=== PATIENT | male | born 1985 | race Caucasian/White ===

== ENCOUNTER 2017-05-20 07:00 | Emergency (ER) | payer SELFPAY ==
[~2017-05-20] VITALS: Ht 167.6 cm; Wt 83.9 kg
[~2017-05-20 07:00] MED LIST: AMOX500C PO; ONDA4TAB10 SL
[2017-05-20] MEDS ORDERED: DICYCLOMINE HCL 10 MG CAPSULE PO ONE (07:45)
[2017-05-20] MEDS ORDERED: ONDANSETRON ODT 4 MG TAB.RAPDIS. PO ONE (07:45)
--- NOTE | 2017-05-20 07:57 | PHYS DOC ---
Past Medical History Past Medical History: Asthma Past Surgical History: Other Additional Past Surgical Histo: tubes in ears Alcohol Use: Occasionally Drug Use: None Adult General Chief Complaint Chief Complaint: NAUSEA/VOMITING/DIARRHA HPI HPI Patient is a 31 year old male presents to the emergency department with a history of nausea, vomiting and diarrhea since last night. Patient states he has vomited 12 times since last night, and has had 3 diarrhea stools. Denies blood in emesis or stool. He states he has lower abdominal pain. Denies fever, chills. Review of Systems Review of Systems Constitutional: Denies fever or chills [] Eyes: Denies change in visual acuity, redness, or eye pain [] HENT: Denies nasal congestion or sore throat [] Respiratory: Denies cough or shortness of breath [] Cardiovascular: No additional information not addressed in HPI [] GI: lower abdominal pain, nausea, vomiting, and diarrhea [] : Denies dysuria or hematuria [] Musculoskeletal: Denies back pain or joint pain [] Integument: Denies rash or skin lesions [] Neurologic: Denies headache, focal weakness or sensory changes [] Endocrine: Denies polyuria or polydipsia [] Current Medications Current Medications Current Medications Medications (Trade) Dose Ordered Sig/Joaquim Start Time Stop Time Status Last Admin Dose Admin Dicyclomine HCl (Bentyl) 10 mg 1X ONCE 05/20/17 07:45 05/20/17 07:46 DC 05/20/17 07:57 10 MG Ondansetron HCl (Zofran Odt) 4 mg 1X ONCE 05/20/17 07:45 05/20/17 07:46 DC 05/20/17 07:57 4 MG Allergies Allergies Allergies Coded Allergies Type Severity Reaction Last Updated Verified No Known Drug Allergies 01/02/14 No Physical Exam Physical Exam Constitutional: Well developed, well nourished, no acute distress, non-toxic appearance. [] HENT: Normocephalic, atraumatic, bilateral external ears normal, oropharynx moist, no oral exudates, nose normal. [] Eyes: PERRLA, EOMI, conjunctiva normal, no discharge. [] Neck: Normal range of motion, no tenderness, supple, no stridor. [] Cardiovascular:Heart rate regular rhythm, no murmur [] Lungs & Thorax: Bilateral breath sounds clear to auscultation [] Abdomen: Bowel sounds normal, soft, no tenderness, no masses, no pulsatile masses. [] Skin: Warm, dry, no erythema, no rash. [] Back: No tenderness Extremities: No tenderness, no cyanosis, no clubbing, ROM intact, no edema. [] Neurologic: Alert and oriented X 3, normal motor function, normal sensory function, no focal deficits noted. [] Psychologic: Affect normal, judgement normal, mood normal. [] Current Patient Data Vital Signs Vital Signs Date Time Temp Pulse Resp B/P (MAP) Pulse Ox O2 Delivery O2 Flow Rate FiO2 05/20/17 07:17 98.2 62 18 116/59 (78) 96 Room Air 98.2 Lab Values Laboratory Tests Test 05/20/17 07:55 White Blood Count 7.3 x10^3/uL (4.0-11.0) Red Blood Count 5.18 x10^6/uL (4.30-5.70) Hemoglobin 15.5 g/dL (13.0-17.5) Hematocrit 45.8 % (39.0-53.0) Mean Corpuscular Volume 89 fL (79-100) Mean Corpuscular Hemoglobin 30 pg (25-35) Mean Corpuscular Hemoglobin Concent 34 g/dL (31-37) Red Cell Distribution Width 12.4 % (11.5-14.5) Platelet Count 229 x10^3/uL (140-400) Neutrophils (%) (Auto) 45 % (31-73) Lymphocytes (%) (Auto) 42 % (24-48) Monocytes (%) (Auto) 8 % (0-9) Eosinophils (%) (Auto) 4 % (0-3) H Basophils (%) (Auto) 1 % (0-3) Neutrophils # (Auto) 3.3 x10^3uL (1.8-7.7) Lymphocytes # (Auto) 3.0 x10^3/uL (1.0-4.8) Monocytes # (Auto) 0.6 x10^3/uL (0.0-1.1) Eosinophils # (Auto) 0.3 x10^3/uL (0.0-0.7) Basophils # (Auto) 0.1 x10^3/uL (0.0-0.2) Sodium Level 137 mmol/L (136-145) Potassium Level 3.7 mmol/L (3.5-5.1) Chloride Level 103 mmol/L (98-107) Carbon Dioxide Level 23 mmol/L (21-32) Anion Gap 11 (6-14) Blood Urea Nitrogen 18 mg/dL (8-26) Creatinine 0.7 mg/dL (0.7-1.3) Estimated GFR (Cockcroft-Gault) 133.3 BUN/Creatinine Ratio 26 (6-20) H Glucose Level 118 mg/dL (70-99) H Calcium Level 8.4 mg/dL (8.5-10.1) L Total Bilirubin 0.2 mg/dL (0.2-1.0) Aspartate Amino Transferase (AST) 13 U/L (15-37) L Alanine Aminotransferase (ALT) 61 U/L (16-63) Alkaline Phosphatase 60 U/L (46-116) Total Protein 7.1 g/dL (6.4-8.2) Albumin 3.6 g/dL (3.4-5.0) Albumin/Globulin Ratio 1.0 (1.0-1.7) Laboratory Tests 05/20/17 07:55 Laboratory Tests 05/20/17 07:55 EKG EKG [] Radiology/Procedures Radiology/Procedures [][facility] [address] [place], [place] [id number] IMAGING REPORT Signed PATIENT: DOROTHY AMAYA ACCOUNT: [id number] : 1985 LOCATION: ER AGE: 31 SEX: M EXAM STATUS: REG ER ORD. PHYSICIAN: SHAWN CABALLERO APRN REASON: LOWER ABDOMINAL PAIN PROCEDURE: ACUTE ABDOMEN SERIES Acute abdomen series with chest, 3 views, 05/20/2017: History: Left-sided abdominal pain, nausea and vomiting Gas is present in large and small bowel without bowel distention. There are scattered air-fluid levels. No free air seen in the abdomen. There is no evidence of organomegaly. Lower pelvic calcifications are probably phleboliths. The heart size and pulmonary vascularity are normal. The lungs are clear. There is no evidence of pleural fluid. IMPRESSION: 1. Scattered air-fluid levels in nondilated bowel loops suggest a mild ileus or may be secondary to fluid in the colon from diarrhea. 2. No other significant abnormality is detected. DICTATED and SIGNED BY: NESTOR GOLD MD DATE: 05/20/17829 CC: SHAWN CABALLERO APRN; NO PCP; NON,STAFF ~ Course & Med Decision Making Course & Med Decision Making Pertinent Labs and Imaging studies reviewed. (See chart for details) Patient tolerated PO challenge without difficulty. CBC and CMP negative, Acute abd series identified possible ileus, possible fluid in the colon. Patient will be sent home with recommendations for clear liquid diet, will be prescriber zofran and bentyl. Patient was provided with discharge instructions, treatment regimen and followup recommendations. Signs and symptoms to return to the emergency department has been provided. All questions and concerns were answered at patients bedside. [] Dragon Disclaimer Dragon Disclaimer This electronic medical record was generated, in whole or in part, using a voice recognition dictation system. Departure Departure Impression: Primary Impression: Vomiting and diarrhea Additional Impression: Lower abdominal pain Disposition: 01 HOME, SELF-CARE Condition: STABLE Referrals: NO PCP (PCP) Patient Instructions: Diarrhea, [id number], Diet for Diarrhea, Adult, Nausea and Vomiting, [id number] Additional Instructions: Activity as tolerated Medication as prescribed Imodium may be taken if your diarrhea last longer than 4 days Clear liquid diet for the next 24 hours Followup with primary care provider in 3-5 days Return to emergency department as needed for signs and symptoms that becomes worse. Scripts Ondansetron (ZOFRAN ODT) 4 Mg Tab.rapdis 1 TAB SL Q8HRS, #10 TAB Prov: SHAWN CABALLERO APRN 05/20/17 Dicyclomine Hcl (BENTYL) 10 Mg Capsule 1 CAP PO TID, #90 CAP 1 Refill Prov: SHAWN CABALLERO APRN 05/20/17 Problem Qualifiers SHAWN CABALLERO APRN May 20, 2017 07:57
[2017-05-20 08:18] LABS: BASO # 0.1 x10^3/uL (0.0-0.2); BASO % 1 % (0-3); EOS % 4 % (0-3); HEMATOCRIT 45.8 % (39.0-53.0); HEMOGLOBIN 15.5 g/dL (13.0-17.5); LYMPH % 42 % (24-48); MEAN CORPUSCULAR HEMOGLOBIN 30 pg (25-35); MEAN CORPUSCULAR HGB CONC 34 g/dL (31-37); MEAN CORPUSCULAR VOLUME 89 fL (79-100); MONO % 8 % (0-9); NEUT % 45 % (31-73); PLATELET COUNT 229 x10^3/uL (140-400); RED BLOOD COUNT 5.18 x10^6/uL (4.30-5.70); RED CELL DISTRIBUTION WIDTH 12.4 % (11.5-14.5); WHITE BLOOD COUNT 7.3 x10^3/uL (4.0-11.0)
[2017-05-20 08:21] LABS: CALCIUM 8.4 mg/dL (8.5-10.1); CREATININE 0.7 mg/dL (0.7-1.3); GFR 133.3; POTASSIUM 3.7 mmol/L (3.5-5.1)
[2017-05-20 08:27] LABS: ALBUMIN 3.6 g/dL (3.4-5.0); TOTAL BILIRUBIN 0.2 mg/dL (0.2-1.0); TOTAL PROTEIN 7.1 g/dL (6.4-8.2)
--- NOTE | 2017-05-20 08:35 | RAD ---
Acute abdomen series with chest, 3 views, 05/20/2017: History: Left-sided abdominal pain, nausea and vomiting Gas is present in large and small bowel without bowel distention. There are scattered air-fluid levels. No free air seen in the abdomen. There is no evidence of organomegaly. Lower pelvic calcifications are probably phleboliths. The heart size and pulmonary vascularity are normal. The lungs are clear. There is no evidence of pleural fluid. IMPRESSION: 1. Scattered air-fluid levels in nondilated bowel loops suggest a mild ileus or may be secondary to fluid in the colon from diarrhea. 2. No other significant abnormality is detected.
[2017-05-20] MEDS ORDERED: ONDA4TAB10 SL (08:59)
[2017-05-20] MEDS ORDERED: DICY10CA53 PO (08:59)
[2017-05-20 09:08] VITALS: BP 112/61
== END 2017-05-20 09:38 | disposition home or self-care (01) ==
LOC: ER 07:00
DX: R11.2 Nausea with vomiting, unspecified (principal); R19.7 Diarrhea, unspecified; R10.30 Lower abdominal pain, unspecified; J45.909 Unspecified asthma, uncomplicated
CPT/HCPCS: 36415; 74022; 80053; 85025; 99285; Q0162

== ENCOUNTER 2017-11-02 19:12 | Emergency (ER) | payer SELFPAY | END 2017-11-02 19:43 | disposition home or self-care (01) | LOC: ER 19:12 | DX: K02.9 Dental caries, unspecified (principal); J45.909 Unspecified asthma, uncomplicated | CPT/HCPCS: 99283 ==

== ENCOUNTER 2017-12-01 18:42 | Emergency (ER) | payer SELFPAY ==
[2017-12-01] MEDS: IBUPROFEN 800 MG TABLET. PO (18:55)
== END 2017-12-01 19:13 | disposition home or self-care (01) ==
LOC: ER 18:42
DX: G89.29 Other chronic pain (principal); K02.9 Dental caries, unspecified
CPT/HCPCS: 99283

== ENCOUNTER 2018-07-06 11:07 | Emergency (ER) | payer SELFPAY ==
[~2018-07-06] VITALS: Ht 167.6 cm; Wt 83.9 kg
[~2018-07-06 11:07] MED LIST changes: +CLIN300C8 PO; +DICY10CA53 PO; +OXYC-323 PO
[2018-07-06] MEDS: BENZONATATE 100 MG CAPSULE. PO ONE (12:02)
[2018-07-06] MEDS: predniSONE 20 MG TABLET PO ONE (12:02)
[2018-07-06] MEDS: NAPROXEN 500 MG TABLET PO STA (12:03)
[2018-07-06] MEDS: IPRATRPIUM/ALBUTEROL 0.5/2.5MG 3 ML NEBU. NEB ONE (12:10)
--- NOTE | 2018-07-06 12:24 | RAD ---
Chest, 2 views, 07/06/2018: HISTORY: Cough, chest pain The heart size and pulmonary vascularity are within normal limits. No pulmonary infiltrate is seen. There is no evidence of pleural fluid. IMPRESSION: No acute cardiopulmonary abnormality is detected. Electronically signed by: Zaki Agrawal MD (07/06/2018 12:21 PM) [facility]
--- NOTE | 2018-07-06 13:14 | PHYS DOC ---
Past Medical History Past Medical History: No Pertinent History Past Surgical History: No Surgical History Additional Past Surgical Histo: tubes in ears Alcohol Use: None Drug Use: None Adult General Chief Complaint Chief Complaint: CHEST WALL PAIN HPI HPI Patient is a 32 year old male who presents with mild to moderate left sided rib pain worse when he coughs or takes a deep breath that has been going on for 4-5 days. Patient states he has history of smoking and has been coughing more lately. Patient denies any fever. Denies any shortness of breath. Review of Systems Review of Systems Constitutional: Denies fever or chills [] Eyes: Denies change in visual acuity, redness, or eye pain [] HENT: Denies nasal congestion or sore throat [] Respiratory: Reports cough and left-sided rib pain, denies shortness of breath [ ] Cardiovascular: No additional information not addressed in HPI [] GI: Denies abdominal pain, nausea, vomiting, bloody stools or diarrhea [] : Denies dysuria or hematuria [] Musculoskeletal: Denies back pain or joint pain [] Integument: Denies rash or skin lesions [] Neurologic: Denies headache, focal weakness or sensory changes [] All other systems were reviewed and found to be within normal limits, except as documented in this note. Current Medications Current Medications Current Medications Medications (Trade) Dose Ordered Sig/Joaquim Start Time Stop Time Status Last Admin Dose Admin Albuterol/ Ipratropium (Duoneb) 3 ml 1X ONCE 07/06/18 11:30 07/06/18 11:33 DC 07/06/18 12:10 3 ML Benzonatate (Tessalon Perle) 100 mg 1X ONCE 07/06/18 11:30 07/06/18 11:33 DC 07/06/18 12:02 100 MG Naproxen (Naprosyn) 500 mg 1X STAT 07/06/18 11:28 07/06/18 11:33 DC 07/06/18 12:03 500 MG Prednisone (Prednisone) 60 mg 1X ONCE 07/06/18 11:30 07/06/18 11:33 DC 07/06/18 12:02 60 MG Allergies Allergies Allergies Coded Allergies Type Severity Reaction Last Updated Verified No Known Drug Allergies 07/06/18 No Physical Exam Physical Exam Constitutional: Well developed, well nourished, no acute distress, non-toxic appearance. [] HENT: Normocephalic, atraumatic, bilateral external ears normal, oropharynx moist, no oral exudates, nose normal. [] Eyes: PERRLA, EOMI, conjunctiva normal, no discharge. [] Neck: Normal range of motion, no tenderness, supple, no stridor. [] Cardiovascular:Heart rate regular rhythm, no murmur [] Lungs & Thorax: Bilateral breath sounds clear to auscultation, reproducible pain to the left ribs on deep breath. Abdomen: Bowel sounds normal, soft, no tenderness, no masses, no pulsatile masses. [] Skin: Warm, dry, no erythema, no rash. [] Back: No tenderness, no CVA tenderness. [] Extremities: No tenderness, no cyanosis, no clubbing, ROM intact, no edema. [] Neurologic: Alert and oriented X 3, normal motor function, normal sensory function, no focal deficits noted. [] Psychologic: Affect normal, judgement normal, mood normal. [] Current Patient Data Vital Signs Vital Signs Date Time Temp Pulse Resp B/P (MAP) Pulse Ox O2 Delivery O2 Flow Rate FiO2 07/06/18 12:10 97 Room Air 07/06/18 11:13 97.6 83 18 127/83 (98) 97.6 EKG EKG [] Radiology/Procedures Radiology/Procedures []PROCEDURE: CHEST PA & LATERAL Chest, 2 views, 07/06/2018: HISTORY: Cough, chest pain The heart size and pulmonary vascularity are within normal limits. No pulmonary infiltrate is seen. There is no evidence of pleural fluid. IMPRESSION: No acute cardiopulmonary abnormality is detected. Electronically signed by: Nestor Agrawal MD (07/06/2018 12:21 PM) [facility] DICTATED and SIGNED BY: NESTOR AGRAWAL MD DATE: 07/06/18 1220 Course & Med Decision Making Course & Med Decision Making Pertinent Labs and Imaging studies reviewed. (See chart for details) This is a 32-year-old male patient with history of smoking presenting to the ED today with pleuritic type of pain on the left ribs also showing signs of bronchitis. Chest x-ray interpreted by radiologist as negative for any acute findings. Was given a DuoNeb treatment prednisone and naproxen with very good relief of his symptoms. Will be discharged with the breathing treatments, prednisone Tessalon Perles and naproxen. Encouraged to consider smoking cessation. Follow-up with PCP in 1-2 weeks Loyd Disclaimer Loyd Disclaimer This electronic medical record was generated, in whole or in part, using a voice recognition dictation system. Departure Departure Impression: Primary Impression: Pleurisy Additional Impressions: Acute bronchitis Smoking addiction Disposition: HOME, SELF-CARE Condition: STABLE Referrals: NO PCP (PCP) Follow-up in 1-2 weeks with your own doctor Patient Instructions: Acute Bronchitis, Pleurisy, [id number], Smoking Cessation Additional Instructions: You were evaluated in the emergency room and noted to pleurisy and acute bronchitis. Consider smoking cessation. Follow-up with your doctor in 1-2 weeks. Use the prescribed medications as ordered. Scripts Albuterol Sulfate (VENTOLIN HFA INHALER) 18 Gm Hfa.aer.ad 2 PUFF INH Q4HRS for FOR ASTHMA, #1 INHALER 0 Refills Prov: ROYAL ALVAREZ APRN 07/06/18 Benzonatate (TESSALON PERLE) 100 Mg Capsule 1 CAP PO TID, #30 CAP Prov: ROYAL ALVAREZ APRN 07/06/18 Prednisone (PREDNISONE) 50 Mg Tablet 1 TAB PO DAILY, #4 TAB Prov: ROYAL ALVAREZ APRN 07/06/18 Naproxen (NAPROXEN) 500 Mg Tablet 1 TAB PO BID, #30 TAB 0 Refills Prov: ROYAL ALVAREZ APRN 07/06/18 Problem Qualifiers Additional Impressions: Acute bronchitis Bronchitis organism: unspecified organism Qualified Codes: J20.9 - Acute bronchitis, unspecified ROYAL ALVAREZ APRN Jul 06, 2018 13:14
[2018-07-06] MEDS ORDERED: PRED50TA PO (13:21)
[2018-07-06] MEDS ORDERED: NAPR-514 PO (13:21)
[2018-07-06] MEDS ORDERED: BENZ100C PO (13:21)
[2018-07-06] MEDS ORDERED: VENTOLIN HFA18 GM INH (13:21)
[2018-07-06 14:00] VITALS: BP 129/90
== END 2018-07-06 14:00 | disposition home or self-care (01) ==
LOC: ER 11:07
DX: J20.9 Acute bronchitis, unspecified (principal); R09.1 Pleurisy; F17.200 Nicotine dependence, unspecified, uncomplicated; Z96.22 Myringotomy tube(s) status
CPT/HCPCS: 71046; 94640; 99284; J7512; J7620

== ENCOUNTER 2019-06-14 21:08 | Emergency (ER) | payer SELFPAY ==
[~2019-06-14] VITALS: Ht 167.6 cm; Wt 95.3 kg
[~2019-06-14 21:08] MED LIST changes: +BENZ100C PO; +NAPR-514 PO; -OXYC-323 PO; +OXYC1TAB15 PO; +PRED50TA PO; +VENTOLIN HFA18 GM INH
[2019-06-14 21:36] VITALS: BP 149/77
[2019-06-14] MEDS ORDERED: SULF1TAB24 PO (21:59)
--- NOTE | 2019-06-14 21:59 | PHYS DOC ---
Past Medical History Past Medical History: No Pertinent History (ROYAL ALVAREZ APRN) Past Surgical History: No Surgical History Additional Past Surgical Histo: tubes in ears (ROYAL ALVAREZ APRN) Alcohol Use: None Drug Use: None (ROYAL ALVAREZ APRN) Attending Signature I have participated in the care of this patient and I have reviewed and agree with all pertinent clinical information above including history, exam, and recommendations. (PATRICK FLEMING MD) Adult General Chief Complaint Chief Complaint: ABSCESS HPI HPI Patient is a 33 year old male who presents with an abscess on the right chest wall for one week. Patient states he has used pride and the abscess opened up and drained. Denies any fever. (ROYAL ALVAREZ APRN) Review of Systems Review of Systems Constitutional: Denies fever or chills [] Musculoskeletal: Denies back pain or joint pain [] Integument: Reports abscess on the right chest wall Neurologic: Denies headache, focal weakness or sensory changes [] All other systems were reviewed and found to be within normal limits, except as documented in this note. (ROYAL ALVAREZ APRN) Current Medications Current Medications Current Medications Medications (Trade) Dose Ordered Sig/Joaquim Start Time Stop Time Status Last Admin Dose Admin Diphtheria/ Tetanus/Acell Pertussis (Boostrix) 0.5 ml ONCE ONCE 06/14/19 22:15 06/14/19 22:13 DC (PATRICK FLEMING MD) Allergies Allergies Allergies Coded Allergies Type Severity Reaction Last Updated Verified No Known Drug Allergies 07/06/18 No (PATRICK FLEMING MD) Physical Exam Physical Exam Constitutional: Well developed, well nourished, no acute distress, non-toxic appearance. [] Skin: Warm, dry, right mid chest, axillary line with an open wound approximately 1 x 1 cm with trace erythema. No fluctuance to this wound. Back: No tenderness, no CVA tenderness. [] Extremities: No tenderness, no cyanosis, no clubbing, ROM intact, no edema. [] Neurologic: Alert and oriented X 3, normal motor function, normal sensory function, no focal deficits noted. [] Psychologic: Affect normal, judgement normal, mood normal. [] (ROYAL ALVAREZ APRN) Current Patient Data Vital Signs Vital Signs Date Time Temp Pulse Resp B/P (MAP) Pulse Ox O2 Delivery O2 Flow Rate FiO2 06/14/19 21:36 98.3 102 18 149/77 (101) 97 Room Air 98.3 (PATRICK FLEMING MD) EKG EKG [] (ROYAL ALVAREZ APRN) Radiology/Procedures Radiology/Procedures [] (ROYAL ALVAREZ APRN) Course & Med Decision Making Course & Med Decision Making Pertinent Labs and Imaging studies reviewed. (See chart for details) This is a 33-year-old male patient who presents to the ED today with an abscess on the right chest wall that has opened up and drained. There is trace cellulitis around the abscess. He'll be discharged on cephalexin and Bactrim. Follow-up with PCP in 1-2 weeks as needed. Tetanus updated. (ROYAL ALVAREZ APRN) Dragon Disclaimer Dragon Disclaimer This electronic medical record was generated, in whole or in part, using a voice recognition dictation system. (ROYAL ALVAREZ APRN) Departure Departure Impression: Primary Impression: Chest wall abscess Disposition: HOME, SELF-CARE Condition: STABLE Referrals: NO PCP (PCP) follow up in one week Patient Instructions: Abscess, Care After Additional Instructions: You have an abscess on the right chest wall region, take the prescribed antibiotics until completed. Follow-up with your doctor in 1-2 weeks. Come back to the ED at any point symptoms worsen. Keep the area clean and dry. Scripts Sulfamethoxazole/Trimethoprim (BACTRIM DS TABLET) 1 Each Tablet 1 TAB PO BID, #20 TAB Prov: ROYAL ALVAREZ APRN 06/14/19 ROYAL ALVAREZ APRN Jun 14, 2019 21:59 PATRICK FLEMING MD Jun 15, 2019 04:04
[2019-06-14] MEDS ORDERED: DIPHTH,PERTUSS(ACELL),TET TOX 0.5 ML DISP.SYRIN. VAX IM ONE (22:15)
== END 2019-06-14 22:10 | disposition home or self-care (01) ==
LOC: ER 21:08
DX: L02.213 Cutaneous abscess of chest wall (principal)
CPT/HCPCS: 99283

== ENCOUNTER 2019-08-10 19:27 | Emergency (ER) | payer SELFPAY ==
[~2019-08-10] VITALS: Ht 177.8 cm; Wt 95.3 kg
[~2019-08-10 19:27] MED LIST changes: +SULF1TAB24 PO
[2019-08-10] MEDS ORDERED: MECLIZINE HCL 12.5 MG TABLET. PO ONE (19:45)
[2019-08-10] MEDS ORDERED: DEXAMETHASONE 4 MG TABLET PO ONE (19:45)
[2019-08-10] MEDS ORDERED: IV NORMAL SALINE 1000ML BAG 1,000 ML IV ONE (19:45)
--- NOTE | 2019-08-10 19:51 | PHYS DOC ---
Past Medical History Past Medical History: No Pertinent History Past Surgical History: No Surgical History Additional Past Surgical Histo: tubes in ears Smoking: Less than 1pk/day (1/2 ppd) Alcohol Use: None Drug Use: None Adult General Chief Complaint Chief Complaint: DIZZY/LIGHT HEADED HPI HPI Patient is a 33 y/o male who presents to the ED with dizziness that started afte r an episode of vomiting today at 1000 while at work. He describes the dizziness as the "room spinning" and states it has been happening fluctuating all day. Pt also endorses right sided chest pain and SOB. Denies any radiation of pain and history of vertigo. Review of Systems Review of Systems Constitutional: Denies fever or chills Eyes: Denies redness or eye pain HENT: Denies nasal congestion or sore throat Respiratory: Reports shortness of breath Cardiovascular: Reports chest pain, denies palpitations GI: Denies abdominal pain, Reports nausea and vomiting : Denies dysuria or hematuria Musculoskeletal: Denies back pain or joint pain Integument: Denies rash or skin lesions Neurologic: Reports dizziness Complete systems were reviewed and found to be within normal limits, except as documented in this note. Current Medications Current Medications Current Medications Medications (Trade) Dose Ordered Sig/Joaquim Start Time Stop Time Status Last Admin Dose Admin Dexamethasone (Decadron) 10 mg 1X ONCE 08/10/19 19:45 08/10/19 19:53 DC 08/10/19 20:21 10 MG Meclizine HCl (Antivert) 25 mg 1X ONCE 08/10/19 19:45 08/10/19 19:53 DC 08/10/19 20:21 25 MG Sodium Chloride 1,000 ml @ 1,000 mls/hr 1X ONCE 08/10/19 19:45 08/10/19 20:44 DC 08/10/19 19:45 1,000 MLS/HR Allergies Allergies Allergies Coded Allergies Type Severity Reaction Last Updated Verified No Known Drug Allergies 07/06/18 No Physical Exam Physical Exam Constitutional: Well developed, well nourished, mild acute distress, non-toxic appearance HENT: Normocephalic, atraumatic, oropharynx moist Cardiovascular: Heart rate normal, regular rhythm Lungs & Thorax: Bilateral breath sounds clear to auscultation, slight expiratory wheeze on right lower lung field Abdomen: Soft, no tenderness Skin: Warm, dry, no erythema, no rash Back: No tenderness, no CVA tenderness Extremities: No tenderness, ROM intact, no edema Neurologic: Alert and oriented X 3, normal motor function, normal sensory function, no focal deficits noted Psychologic: Affect normal, judgement normal, mood normal Current Patient Data Vital Signs Vital Signs Date Time Temp Pulse Resp B/P (MAP) Pulse Ox O2 Delivery O2 Flow Rate FiO2 08/10/19 22:19 81 22 99 08/10/19 19:41 97.7 117/69 (85) Room Air 97.7 Lab Values Laboratory Tests Test 08/10/19 19:43 08/10/19 19:54 08/10/19 21:00 Troponin I Quantitative < 0.017 ng/mL (0.000-0.055) White Blood Count 9.0 x10^3/uL (4.0-11.0) Red Blood Count 5.60 x10^6/uL (4.30-5.70) Hemoglobin 16.7 g/dL (13.0-17.5) Hematocrit 49.6 % (39.0-53.0) Mean Corpuscular Volume 89 fL (79-100) Mean Corpuscular Hemoglobin 30 pg (25-35) Mean Corpuscular Hemoglobin Concent 34 g/dL (31-37) Red Cell Distribution Width 12.9 % (11.5-14.5) Platelet Count 261 x10^3/uL (140-400) Neutrophils (%) (Auto) 61 % (31-73) Lymphocytes (%) (Auto) 29 % (24-48) Monocytes (%) (Auto) 7 % (0-9) Eosinophils (%) (Auto) 3 % (0-3) Basophils (%) (Auto) 1 % (0-3) Neutrophils # (Auto) 5.5 x10^3/uL (1.8-7.7) Lymphocytes # (Auto) 2.6 x10^3/uL (1.0-4.8) Monocytes # (Auto) 0.6 x10^3/uL (0.0-1.1) Eosinophils # (Auto) 0.2 x10^3/uL (0.0-0.7) Basophils # (Auto) 0.1 x10^3/uL (0.0-0.2) Sodium Level 139 mmol/L (136-145) Potassium Level 3.4 mmol/L (3.5-5.1) L Chloride Level 102 mmol/L (98-107) Carbon Dioxide Level 24 mmol/L (21-32) Anion Gap 13 (6-14) Blood Urea Nitrogen 11 mg/dL (8-26) Creatinine 0.8 mg/dL (0.7-1.3) Estimated GFR (Cockcroft-Gault) 112.8 BUN/Creatinine Ratio 14 (6-20) Glucose Level 89 mg/dL (70-99) Calcium Level 9.0 mg/dL (8.5-10.1) Magnesium Level 2.0 mg/dL (1.8-2.4) Total Bilirubin 0.8 mg/dL (0.2-1.0) Aspartate Amino Transferase (AST) 31 U/L (15-37) Alanine Aminotransferase (ALT) 77 U/L (16-63) H Alkaline Phosphatase 63 U/L (46-116) Creatine Kinase 68 U/L (39-308) Creatine Kinase MB (Mass) 0.8 ng/mL (0.0-3.6) Creatine Kinase MB Relative Index % (0-4) Total Protein 7.1 g/dL (6.4-8.2) Albumin 4.0 g/dL (3.4-5.0) Albumin/Globulin Ratio 1.3 (1.0-1.7) Ethyl Alcohol Level < 10 mg/dL (0-10) Urine Collection Type Unknown Urine Color Yoselyn Urine Clarity Cloudy Urine pH 6.0 Urine Specific Reeves >=1.030 Urine Protein Negative mg/dL (NEG-TRACE) Urine Glucose (UA) Negative mg/dL (NEG) Urine Ketones (Stick) >=80 mg/dL (NEG) Urine Blood Negative (NEG) Urine Nitrite Negative (NEG) Urine Bilirubin Moderate (NEG) Urine Urobilinogen Dipstick 1.0 mg/dL (0.2 mg/dL) Urine Leukocyte Esterase Negative (NEG) Urine RBC Occ /HPF (0-2) Urine WBC 5-10 /HPF (0-4) Urine Squamous Epithelial Cells Few /LPF Urine Bacteria Few /HPF (0-FEW) Urine Mucus Marked /LPF Urine Opiates Screen Neg (NEG) Urine Methadone Screen Neg (NEG) Urine Barbiturates Neg (NEG) Urine Phencyclidine Screen Neg (NEG) Urine Amphetamine/Methamphetamine Pos (NEG) Urine Benzodiazepines Screen Neg (NEG) Urine Cocaine Screen Neg (NEG) Urine Cannabinoids Screen Pos (NEG) Urine Ethyl Alcohol Neg (NEG) Laboratory Tests 08/10/19 19:54 Laboratory Tests 08/10/19 19:54 EKG EKG @1959 NSR at 94bpm, NO ST elevation, QRS 80ms, QT/QTc 346/438ms Radiology/Procedures Radiology/Procedures PROCEDURE: CT HEAD WO CONTRAST CT scan of the head without contrast 08/10/2019 Clinical History: Dizziness. Technique: Unenhanced, contiguous, 5 mm axial sections were obtained through the head. One or more of the following individualized dose reduction techniques were utilized for this study: 1. Automated exposure control. 2. Adjustment of the mA and/or kV according to patient size. 3. Use of iterative reconstruction technique. Findings: The ventricles and sulci are within normal limits in size and configuration. No focal area of abnormal attenuation is seen involving the brain parenchyma. No extra-axial fluid collection is seen. No skull fracture is seen. Impression: Negative study. Electronically signed by: Ashok Guadalupe MD (08/10/2019 9:33 PM) [facility] Course & Med Decision Making Course & Med Decision Making Pt is a 33 y/o male who presents with dizziness that started after an episode of vomiting while at work today. He describes the symptoms as the room spinning. Will start pt on fluids, antivert, dexamethasone. EKG... Labs.. CXR.. Dragon Disclaimer Loyd Disclaimer This electronic medical record was generated, in whole or in part, using a voice recognition dictation system. Departure Departure Impression: Primary Impression: Dizziness Additional Impressions: Acute bronchitis Methamphetamine abuse Disposition: 01 HOME, SELF-CARE Condition: STABLE Referrals: NO PCP (PCP) Patient Instructions: Acute Bronchitis, [id number], Dizziness, [id number]-Mhdh, Methamphetamine Abuse, Complications Scripts Meclizine Hcl (MECLIZINE HCL) 25 Mg Tablet 1 TAB PO PRN TID PRN for DIZZINESS, #14 TAB Prov: TIA REDD DO 08/10/19 Prednisone (PREDNISONE) 20 Mg Tablet 2 TAB PO DAILY, #8 TAB Prov: TIA REDD DO 08/10/19 Albuterol Sulfate (PROAIR HFA INHALER) 8.5 Gm Hfa.aer.ad 2 PUFF IH PRN Q4-6HRS PRN for wheezing, #1 INHALER 0 Refills Prov: TIA REDD DO 08/10/19 Problem Qualifiers Additional Impressions: Acute bronchitis Bronchitis organism: unspecified organism Qualified Codes: J20.9 - Acute bronchitis, unspecified TIA REDD DO Aug 10, 2019 19:51
[2019-08-10 20:05] LABS: BASO # 0.1 x10^3/uL (0.0-0.2); BASO % 1 % (0-3); EOS # 0.2 x10^3/uL (0.0-0.7); EOS % 3 % (0-3); HEMATOCRIT 49.6 % (39.0-53.0); HEMOGLOBIN 16.7 g/dL (13.0-17.5); LYMPH # 2.6 x10^3/uL (1.0-4.8); LYMPH % 29 % (24-48); MEAN CORPUSCULAR HEMOGLOBIN 30 pg (25-35); MEAN CORPUSCULAR HGB CONC 34 g/dL (31-37); MEAN CORPUSCULAR VOLUME 89 fL (79-100); MONO # 0.6 x10^3/uL (0.0-1.1); MONO % 7 % (0-9); NEUT # 5.5 x10^3/uL (1.8-7.7); NEUT % 61 % (31-73); PLATELET COUNT 261 x10^3/uL (140-400); RED CELL DISTRIBUTION WIDTH 12.9 % (11.5-14.5)
[2019-08-10 20:19] LABS: CREATININE 0.8 mg/dL (0.7-1.3); GFR 112.8; POTASSIUM 3.4 mmol/L (3.5-5.1)
[2019-08-10 20:24] LABS: ALBUMIN/GLOBULIN RATIO 1.3 (1.0-1.7); TOTAL BILIRUBIN 0.8 mg/dL (0.2-1.0); TOTAL PROTEIN 7.1 g/dL (6.4-8.2)
[2019-08-10 20:31] LABS: CREATINE KINASE 68 U/L (39-308)
[2019-08-10 21:08] LABS: BILIRUBIN,URINE MODERATE (NEG); CLARITY,URINE CLOUDY; COLOR,URINE AMBER; NITRITE,URINE NEGATIVE (NEG); PROTEIN,URINE NEGATIVE (NEG-TRACE)
[2019-08-10 21:15] LABS: AMPHETAMINE/METHAMPHETAMINE POS (NEG); BARBITURATES NEG (NEG); BENZODIAZEPINES NEG (NEG); CANNABINOIDS POS (NEG); COCAINE NEG (NEG); METHADONE NEG (NEG); OPIATES NEG (NEG); PHENCYCLIDINE NEG (NEG)
[2019-08-10 21:18] LABS: BACTERIA,URINE FEW /HPF (0-FEW); RBC,URINE OCC /HPF (0-2); SQUAMOUS EPITHELIAL CELL,UR FEW /LPF
--- NOTE | 2019-08-10 21:36 | RAD ---
CT scan of the head without contrast 08/10/2019 Clinical History: Dizziness. Technique: Unenhanced, contiguous, 5 mm axial sections were obtained through the head. One or more of the following individualized dose reduction techniques were utilized for this study: 1. Automated exposure control. 2. Adjustment of the mA and/or kV according to patient size. 3. Use of iterative reconstruction technique. Findings: The ventricles and sulci are within normal limits in size and configuration. No focal area of abnormal attenuation is seen involving the brain parenchyma. No extra-axial fluid collection is seen. No skull fracture is seen. Impression: Negative study. Electronically signed by: Ashok Guadalupe MD (08/10/2019 9:33 PM) [facility]
[2019-08-10] MEDS ORDERED: MECL25TA3 PO (22:07)
[2019-08-10] MEDS ORDERED: PRED20TA PO (22:07)
[2019-08-10] MEDS ORDERED: ALBU2.5V8 IH (22:07)
[2019-08-10 22:19] VITALS: BP 127/69
--- NOTE | 2019-08-10 23:30 | RAD ---
PA and lateral chest radiographs 10/10/2018 CLINICAL HISTORY: Dizziness. History of chest pain. PA and lateral digital radiographs of the chest were obtained. Comparison study is dated 07/26/2019. The cardiac and mediastinal silhouettes are within normal limits in size and configuration. No acute pulmonary infiltrate is seen. No pleural effusion or pneumothorax is noted. The osseous structures are unchanged. IMPRESSION: No acute abnormality is seen. Electronically signed by: Ashok Guadalupe MD (08/10/2019 11:27 PM) [facility]
--- NOTE | 2019-08-11 09:53 | EKG ---
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
== END 2019-08-10 22:28 | disposition home or self-care (01) ==
LOC: ER 19:27
DX: J20.9 Acute bronchitis, unspecified (principal); R42 Dizziness and giddiness; F15.10 Other stimulant abuse, uncomplicated; F17.200 Nicotine dependence, unspecified, uncomplicated; Z96.22 Myringotomy tube(s) status
CPT/HCPCS: 36415; 70450; 71046; 80053; 80307; 81001; 82553; 83735; 84484; 85025; 87086; 93005; 96360; 96361; 99285; G0480; J7030; J8540; J8597

== ENCOUNTER 2019-08-27 12:37 | Emergency (ER) | payer SELFPAY ==
[~2019-08-27] VITALS: Ht 167.6 cm; Wt 91.7 kg
[~2019-08-27 12:37] MED LIST changes: +ALBU2.5V8 IH; +MECL25TA3 PO; +PRED20TA PO
--- NOTE | 2019-08-27 13:13 | PHYS DOC ---
Past Medical History Past Medical History: No Pertinent History Past Surgical History: Other Additional Past Surgical Histo: tubes in ears Alcohol Use: Rarely Drug Use: None Adult General Chief Complaint Chief Complaint: COUGH HPI HPI Patient is a 33 year old male who presents with cough this been ongoing for week. Patient also states been having vomiting. The patient states that he vomited 20 times in the past week. The patient also states he's had some red blood mixed into the vomit. Denies fever. Denies coffee-ground emesis. Review of Systems Review of Systems Constitutional: Denies fever or chills [] Eyes: Denies change in visual acuity, redness, or eye pain [] HENT: Denies nasal congestion or sore throat [] Respiratory: Reports cough. Cardiovascular: No additional information not addressed in HPI [] GI: Reports vomiting. Denies abdominal pain, nausea, bloody stools or diarrhea [] : Denies dysuria or hematuria [] Musculoskeletal: Denies back pain or joint pain [] Integument: Denies rash or skin lesions [] Neurologic: Denies headache, focal weakness or sensory changes [] Endocrine: Denies polyuria or polydipsia [] Complete systems were reviewed and found to be within normal limits, except as documented in this note. Current Medications Current Medications Current Medications Medications (Trade) Dose Ordered Sig/[facility] Start Time Stop Time Status Last Admin Dose Admin Ondansetron HCl (Zofran) 4 mg 1X ONCE 08/27/19 13:15 08/27/19 13:16 DC 08/27/19 13:38 4 MG Sodium Chloride 1,000 ml @ 1,000 mls/hr 1X ONCE 08/27/19 13:15 08/27/19 14:14 08/27/19 13:38 1,000 MLS/HR Allergies Allergies Allergies Coded Allergies Type Severity Reaction Last Updated Verified No Known Drug Allergies 07/06/18 No Physical Exam Physical Exam Constitutional: Well developed, well nourished, no acute distress, non-toxic appearance. [] HENT: Normocephalic, atraumatic, bilateral external ears normal, oropharynx moist, no oral exudates, nose normal. [] Eyes: PERRLA, EOMI, conjunctiva normal, no discharge. [] Neck: Normal range of motion, no tenderness, supple, no stridor. [] Cardiovascular:Heart rate regular rhythm, no murmur [] Lungs & Thorax: Bilateral breath sounds clear to auscultation [] Abdomen: Bowel sounds normal, soft, no tenderness, no masses, no pulsatile masses. [] Skin: Warm, dry, no erythema, no rash. [] Back: No tenderness, no CVA tenderness. [] Extremities: No tenderness, no cyanosis, no clubbing, ROM intact, no edema. [] Neurologic: Alert and oriented X 3, normal motor function, normal sensory function, no focal deficits noted. [] Psychologic: Affect normal, judgement normal, mood normal. [] Current Patient Data Vital Signs Vital Signs Date Time Temp Pulse Resp B/P (MAP) Pulse Ox O2 Delivery O2 Flow Rate FiO2 08/27/19 12:50 97.6 75 14 130/71 (90) 98 Room Air 97.6 Lab Values Laboratory Tests Test 08/27/19 13:31 White Blood Count 8.2 x10^3/uL (4.0-11.0) Red Blood Count 5.17 x10^6/uL (4.30-5.70) Hemoglobin 15.6 g/dL (13.0-17.5) Hematocrit 46.1 % (39.0-53.0) Mean Corpuscular Volume 89 fL (79-100) Mean Corpuscular Hemoglobin 30 pg (25-35) Mean Corpuscular Hemoglobin Concent 34 g/dL (31-37) Red Cell Distribution Width 13.4 % (11.5-14.5) Platelet Count 230 x10^3/uL (140-400) Neutrophils (%) (Auto) 62 % (31-73) Lymphocytes (%) (Auto) 29 % (24-48) Monocytes (%) (Auto) 6 % (0-9) Eosinophils (%) (Auto) 2 % (0-3) Basophils (%) (Auto) 1 % (0-3) Neutrophils # (Auto) 5.1 x10^3/uL (1.8-7.7) Lymphocytes # (Auto) 2.4 x10^3/uL (1.0-4.8) Monocytes # (Auto) 0.5 x10^3/uL (0.0-1.1) Eosinophils # (Auto) 0.2 x10^3/uL (0.0-0.7) Basophils # (Auto) 0.1 x10^3/uL (0.0-0.2) Prothrombin Time 12.6 SEC (11.7-14.0) Prothrombin Time INR 1.0 (0.8-1.1) Activated Partial Thromboplast Time 29 SEC (24-38) Sodium Level 140 mmol/L (136-145) Potassium Level 4.2 mmol/L (3.5-5.1) Chloride Level 106 mmol/L (98-107) Carbon Dioxide Level 26 mmol/L (21-32) Anion Gap 8 (6-14) Blood Urea Nitrogen 12 mg/dL (8-26) Creatinine 0.8 mg/dL (0.7-1.3) Estimated GFR (Cockcroft-Gault) 112.8 BUN/Creatinine Ratio 15 (6-20) Glucose Level 95 mg/dL (70-99) Calcium Level 8.3 mg/dL (8.5-10.1) L Total Bilirubin 0.5 mg/dL (0.2-1.0) Aspartate Amino Transferase (AST) 20 U/L (15-37) Alanine Aminotransferase (ALT) 39 U/L (16-63) Alkaline Phosphatase 50 U/L (46-116) Total Protein 6.7 g/dL (6.4-8.2) Albumin 3.4 g/dL (3.4-5.0) Albumin/Globulin Ratio 1.0 (1.0-1.7) Laboratory Tests 08/27/19 13:31 Laboratory Tests 08/27/19 13:31 EKG EKG [] Radiology/Procedures Radiology/Procedures [][facility] [address] [place] [address] IMAGING REPORT Signed PATIENT: DOROTHY AMAYA ACCOUNT: [id number] : 1985 LOCATION: ER AGE: 33 SEX: M EXAM STATUS: REG ER ORD. PHYSICIAN: TIA VANEGAS APRN REASON: cough, Pt states coughing up blood x 1 week. PROCEDURE: CHEST PA & LATERAL EXAM: Chest, 2 views. HISTORY: Cough. COMPARISON: 08/10/2019 FINDINGS: 2 views of the chest are obtained. There is no infiltrate, pleural effusion or pneumothorax. The heart is normal in size. IMPRESSION: No acute pulmonary finding. Electronically signed by: Onelia Catalan MD (08/27/2019 1:32 PM) [facility] DICTATED and SIGNED BY: ONELIA CATALAN MD DATE: 08/27/19 1335 Course & Med Decision Making Course & Med Decision Making Pertinent Labs and Imaging studies reviewed. (See chart for details) Will get chest x-ray, labs, and give supportive care. Labs are unremarkable. Patient has not had any episodes of emesis in the ER. Will have follow up with primary care and GI. Will prescribe Zofran. Dragon Disclaimer Dragon Disclaimer This electronic medical record was generated, in whole or in part, using a voice recognition dictation system. Departure Departure Impression: Primary Impression: Cough Additional Impression: Hematemesis Disposition: 01 HOME, SELF-CARE Condition: STABLE Referrals: NO PCP (PCP) NIMA LLOYD MD Patient Instructions: Hematemesis Additional Instructions: Thank you for visiting [facility]. We appreciate you trusting us with your care. If any additional problems come up don't hesitate to return to visit us. Please follow up with your primary care provider so they can plan additional care if needed and know about the problem that you had. If symptoms worsen come back to the Emergency Department. Any concerning symptoms that start such as chest pain, shortness of air, weakness or numbness on one side of the body, running high fevers or any other concerning symptoms return to the ER. Please follow up with a GI doctor. Please fill your medications at any pharmacy and follow the prescription instructions. Scripts Ondansetron (ONDANSETRON ODT) 4 Mg Tab.rapdis 1 TAB PO PRN Q6-8HRS PRN for NAUSEA, #16 TAB Prov: TIA VANEGAS APRN 08/27/19 Problem Qualifiers Additional Impression: Hematemesis Nausea presence: without nausea Qualified Codes: K92.0 - Hematemesis TIA VANEGAS APRN Aug 27, 2019 13:13
[2019-08-27] MEDS ORDERED: ONDANSETRON PF 4 MG/2 ML VIAL. IV ONE (13:15)
[2019-08-27] MEDS ORDERED: IV NORMAL SALINE 1000ML BAG 1,000 ML IV ONE (13:15)
--- NOTE | 2019-08-27 13:35 | RAD ---
EXAM: Chest, 2 views. HISTORY: Cough. COMPARISON: 08/10/2019 FINDINGS: 2 views of the chest are obtained. There is no infiltrate, pleural effusion or pneumothorax. The heart is normal in size. IMPRESSION: No acute pulmonary finding. Electronically signed by: Onelia Waggoner MD (08/27/2019 1:32 PM) [facility]
[2019-08-27 13:38] LABS: BASO # 0.1 x10^3/uL (0.0-0.2); BASO % 1 % (0-3); EOS # 0.2 x10^3/uL (0.0-0.7); EOS % 2 % (0-3); HEMATOCRIT 46.1 % (39.0-53.0); HEMOGLOBIN 15.6 g/dL (13.0-17.5); LYMPH # 2.4 x10^3/uL (1.0-4.8); LYMPH % 29 % (24-48); MEAN CORPUSCULAR HEMOGLOBIN 30 pg (25-35); MEAN CORPUSCULAR HGB CONC 34 g/dL (31-37); MEAN CORPUSCULAR VOLUME 89 fL (79-100); MONO # 0.5 x10^3/uL (0.0-1.1); MONO % 6 % (0-9); NEUT # 5.1 x10^3/uL (1.8-7.7); NEUT % 62 % (31-73); PLATELET COUNT 230 x10^3/uL (140-400); RED BLOOD COUNT 5.17 x10^6/uL (4.30-5.70); RED CELL DISTRIBUTION WIDTH 13.4 % (11.5-14.5); WHITE BLOOD COUNT 8.2 x10^3/uL (4.0-11.0)
[2019-08-27 13:53] LABS: CALCIUM 8.3 mg/dL (8.5-10.1); CREATININE 0.8 mg/dL (0.7-1.3); GFR 112.8; POTASSIUM 4.2 mmol/L (3.5-5.1)
[2019-08-27 14:00] VITALS: BP 118/70
[2019-08-27 14:03] LABS: ALBUMIN 3.4 g/dL (3.4-5.0); TOTAL BILIRUBIN 0.5 mg/dL (0.2-1.0); TOTAL PROTEIN 6.7 g/dL (6.4-8.2)
[2019-08-27 14:07] LABS: PROTHROMBIN TIME PATIENT 12.6 SEC (11.7-14.0)
[2019-08-27] MEDS ORDERED: ONDA4TAB12 PO (14:14)
== END 2019-08-27 14:26 | disposition home or self-care (01) ==
LOC: ER 12:37
DX: R05 Cough (principal); K92.0 Hematemesis; Z98.890 Other specified postprocedural states
CPT/HCPCS: 36415; 71046; 80053; 85025; 85610; 85730; 96374; 99285; J2405; J7030

== ENCOUNTER 2019-10-01 12:27 | Emergency (ER) | payer SELFPAY ==
[~2019-10-01 12:27] MED LIST changes: +MECL-75 PO; -MECL25TA3 PO; +ONDA4TAB12 PO
[2019-10-01 12:38] VITALS: BP 136/76
[2019-10-01] MEDS ORDERED: AMOX500C PO (13:47)
--- NOTE | 2019-10-01 13:47 | PHYS DOC ---
Past Medical History Past Medical History: No Pertinent History Past Surgical History: Other Additional Past Surgical Histo: tubes in ears Additional Information: 1 PK/DAY Alcohol Use: Occasionally Drug Use: None Adult General Chief Complaint Chief Complaint: EARACHE/EAR PAIN HPI HPI Patient is a 33 year old male who presents with right ear pain and throbbing for the last 2 days. He states he been taking ibuprofen for the pain. Denies fever, nausea, vomiting, nasal congestion, abdominal pain, body aches, neck pain, head pain, dizziness, diarrhea, cough. Rates his pain a 8 out of 10. Review of Systems Review of Systems HENT: Denies nasal congestion or sore throat. Right ear pain. [] All other systems were reviewed and found to be within normal limits, except as documented in this note. Allergies Allergies Allergies Coded Allergies Type Severity Reaction Last Updated Verified No Known Drug Allergies 07/06/18 No Physical Exam Physical Exam Constitutional: Well developed, well nourished, no acute distress, non-toxic appearance. [] HENT: Normocephalic, atraumatic, bilateral external ears normal, oropharynx moist, no oral exudates, nose normal. Right ear red and tender with examination, Left tympanic pink. [] Eyes: PERRLA, EOMI, conjunctiva normal, no discharge. [] Neck: Normal range of motion, no tenderness, supple, no stridor. [] Cardiovascular:Heart rate regular rhythm, no murmur [] Lungs & Thorax: Bilateral breath sounds clear to auscultation [] Abdomen: Bowel sounds normal, soft, no tenderness, no masses, no pulsatile masses. [] Skin: Warm, dry, no erythema, no rash. [] Back: No tenderness, no CVA tenderness. [] Extremities: No tenderness, no cyanosis, no clubbing, ROM intact, no edema. [] Neurologic: Alert and oriented X 3, normal motor function, normal sensory func tion, no focal deficits noted. [] Psychologic: Affect normal, judgement normal, mood normal. [] Current Patient Data Vital Signs Vital Signs Date Time Temp Pulse Resp B/P (MAP) Pulse Ox O2 Delivery O2 Flow Rate FiO2 10/01/19 12:38 98.9 83 18 136/76 (96) 100 Room Air 98.9 EKG EKG [] Radiology/Procedures Radiology/Procedures [] Course & Med Decision Making Course & Med Decision Making Right ear tympanic is bright red and painful with exam. Left ear tympanic is pin k in color. Lungs are clear to auscultation all lobes. Throat is pink without exudates or swelling. Lungs are clear in all lobes. vital signs within normal limits. Alert and oriented. Speaks in full clear sentences. Skin pink warm and dry. Dragon Disclaimer Dragon Disclaimer This electronic medical record was generated, in whole or in part, using a voice recognition dictation system. Departure Departure Impression: Primary Impression: Otitis media Disposition: HOME, SELF-CARE Condition: STABLE Referrals: NO PCP (PCP) Patient Instructions: Otitis Media, Adult Additional Instructions: Follow-up with primary care provider. Take medications as prescribed. Take ibuprofen or Tylenol for pain. Scripts Amoxicillin (AMOXICILLIN) 500 Mg Capsule 1 CAP PO BID, #20 CAP Prov: SHAWN SANCHEZ ORAL SURGEON 10/01/19 Problem Qualifiers Primary Impression: Otitis media Otitis media type: suppurative Chronicity: acute Laterality: right Recurrence: non-recurrent Spontaneous tympanic membrane rupture: without spontaneous rupture Qualified Codes: H66.001 - Acute suppurative otitis media without spontaneous rupture of ear drum, right ear SHAWN SANCHEZ ORAL SURGEON Oct 01, 2019 13:47
== END 2019-10-01 14:00 | disposition home or self-care (01) ==
LOC: ER 12:27
DX: H66.001 Acute suppurative otitis media without spontaneous rupture of ear drum, right ear (principal); F17.200 Nicotine dependence, unspecified, uncomplicated; Z98.890 Other specified postprocedural states
CPT/HCPCS: 99283

== ENCOUNTER 2019-12-19 16:42 | Emergency (ER) | payer SELFPAY ==
[~2019-12-19] VITALS: Ht 170.2 cm; Wt 86.3 kg
[2019-12-19 16:48] VITALS: BP 141/81
--- NOTE | 2019-12-19 17:22 | RAD ---
EXAM: Right hand, 3 views. HISTORY: Smashed in door. COMPARISON: None. FINDINGS: 3 views of the right hand are obtained. There is no fracture, dislocation or subluxation. No radiodense foreign body is seen. There is a suspected laceration along the dorsal aspect of the and solid proximal to the metacarpal heads. IMPRESSION: No acute osseous finding. Electronically signed by: Onelia Waggoner MD (12/19/2019 5:19 PM) [facility]
--- NOTE | 2019-12-19 17:37 | PHYS DOC ---
Past Medical History Past Medical History: No Pertinent History Past Surgical History: Other Additional Past Surgical Histo: tubes in ears Smoking Status: Current Every Day Smoker Alcohol Use: Occasionally Drug Use: None General Adult EDM: Chief Complaint: EYE PROBLEMS HPI: HPI: Patient is a 34 year old male who presents the ED today complaining of bilateral eye redness, itching, drainage, symptoms began 2 days ago. Patient describes the drainage is clear. Denies any visual loss. Denies any exposure to people with coronavirus. Patient is also complaining of right hand pain rated as mild, symptoms began 3 days after he accidentally got his right hand caught in a car door. Review of Systems: Review of Systems: Constitutional: Denies fever or chills. [] Eyes: Reports bilateral eye redness, drainage, itching. Denies change in visual acuity. [] Musculoskeletal: Reports right hand pain. Denies back pain or joint pain. [] Integument: Denies rash. [] Neurologic: Denies headache, focal weakness or sensory changes. [] Lymphatic: Denies swollen glands. [] Psychiatric: Denies depression or anxiety. [] Heart Score: Risk Factors: Risk Factors: DM, Current or recent (<one month) smoker, HTN, HLP, family history of CAD, obesity. Risk Scores: Score 0 - 3: 2.5% MACE over next 6 weeks - Discharge Home Score 4 - 6: 20.3% MACE over next 6 weeks - Admit for Clinical Observation Score 7 - 10: 72.7% MACE over next 6 weeks - Early Invasive Strategies Allergies: Allergies: Allergies Coded Allergies Type Severity Reaction Last Updated Verified No Known Drug Allergies 07/06/18 No Physical Exam: PE: Constitutional: Well developed, well nourished, no acute distress, non-toxic appearance. [] Eyes: PERRLA, EOMI, bilateral conjunctiva mildly injected, clear drainage noted Skin: Warm, dry, no erythema, no rash. [] Back: No tenderness, no CVA tenderness. [] Extremities: Right hand with no obvious deformity. No tenderness, no cyanosis, no clubbing, ROM intact, no edema. [] Neurologic: Alert and oriented X 3, normal motor function, normal sensory function, no focal deficits noted. [] Psychologic: Affect normal, judgement normal, mood normal. [] Current Patient Data: Vital Signs: Vital Signs Date Time Temp Pulse Resp B/P (MAP) Pulse Ox O2 Delivery O2 Flow Rate FiO2 12/19/19 16:48 98.0 88 16 141/81 (101) 98 Room Air 98.0 EKG: EKG: [] Radiology/Procedures: Radiology/Procedures: []PROCEDURE: HAND RIGHT 3V EXAM: Right hand, 3 views. HISTORY: Smashed in door. COMPARISON: None. FINDINGS: 3 views of the right hand are obtained. There is no fracture, dislocation or subluxation. No radiodense foreign body is seen. There is a suspected laceration along the dorsal aspect of the and solid proximal to the metacarpal heads. IMPRESSION: No acute osseous finding. Electronically signed by: Onelia Waggoner MD (12/19/2019 5:19 PM) [facility] DICTATED and SIGNED BY: ONELIA WAGGONER MD DATE: 12/19/19 1719 Course & Med Decision Making: Course & Med Decision Making Pertinent Labs and Imaging studies reviewed. (See chart for details) This is a 34-year-old male patient presenting to the ED today with viral conjunctivitis to bilateral eyes. Patient denies any exposure to coronavirus patients. Given prescription for Zaditor and Zyrtec. Also complaining of right hand pain after it was caught in a car door 3 days ago. Right hand x-rays are negative. Discharge to home. Follow-up with PCP in 1 to 2 weeks. Loyd Disclaimer: Dragon Disclaimer: This electronic medical record was generated, in whole or in part, using a voice recognition dictation system. Departure Departure Impression: Primary Impression: Acute allergic conjunctivitis Qualified Codes: H10.13 - Acute atopic conjunctivitis, bilateral Additional Impression: Contusion of hand, right Qualified Codes: S60.221A - Contusion of right hand, initial encounter Disposition: HOME, SELF-CARE Condition: STABLE Referrals: NO PCP (PCP) follow up with your doctor in 1-2 weeks Patient Instructions: Allergic Conjunctivitis, Contusion, [id number] Additional Instructions: Your right hand x-rays are negative for any acute findings, try to ice and elevate the extremity. You can take Tylenol for pain. Use the medicines ordered as prescribed. Follow-up with the provided [facility] and your primary care doctor in the next 1 week Scripts Cetirizine Hcl (ZYRTEC) 10 Mg Tablet 1 TAB PO DAILY, #30 TAB 2 Refills Prov: ROYAL ALVAREZ APRN 12/19/19 Ketotifen Fumarate (ZADITOR) 5 Ml Drops 1 DROP EACHEYE BID, #5 ML 1 Refill Prov: ROYAL ALVAREZ APRN 12/19/19 ROYAL ALVAREZ APRN Dec 19, 2019 17:37
[2019-12-19] MEDS ORDERED: KETO5DRO4 EACHEYE (17:45)
[2019-12-19] MEDS ORDERED: CETI10TA24 PO (17:45)
== END 2019-12-19 17:45 | disposition home or self-care (01) ==
LOC: ER 16:42
DX: S60.221A Contusion of right hand, initial encounter (principal); H10.13 Acute atopic conjunctivitis, bilateral; L29.9 Pruritus, unspecified; F17.200 Nicotine dependence, unspecified, uncomplicated; Z98.890 Other specified postprocedural states; W23.0XXA Caught, crushed, jammed, or pinched between moving objects, initial encounter; Y93.89 Activity, other specified; Y92.89 Other specified places as the place of occurrence of the external cause; Y99.8 Other external cause status
CPT/HCPCS: 73130; 99283

== ENCOUNTER 2020-08-24 21:10 | Emergency (ER) | payer SELFPAY ==
[~2020-08-24] VITALS: Ht 167.6 cm; Wt 90.9 kg
[~2020-08-24 21:10] MED LIST changes: +CETI10TA74 PO; -CLIN300C8 PO; +CLIN300C9 PO; +KETO5DRO4 EACHEYE
[2020-08-24] MEDS ORDERED: NITROGLYCERIN SUBLINGUAL 0.4 MG BOTTLE OF 25. SL PRN (21:45)
[2020-08-24] MEDS ORDERED: IV NORMAL SALINE 1000ML BAG 1,000 ML IV ONE (21:45)
[2020-08-24] MEDS ORDERED: MORPHINE SULFATE 4 MG/ML VIAL. IV/SQ PRN (21:45)
[2020-08-24] MEDS ORDERED: ASPIRIN 325 MG TABLET PO ONE (21:45)
[2020-08-24] MEDS ORDERED: MECLIZINE HCL 12.5 MG TABLET. PO ONE (21:45)
[2020-08-24 21:53] LABS: BASO % 1 % (0-3); EOS # 0.2 x10^3/uL (0.0-0.7); EOS % 2 % (0-3); HEMATOCRIT 48.1 % (39.0-53.0); HEMOGLOBIN 16.1 g/dL (13.0-17.5); LYMPH # 2.4 x10^3/uL (1.0-4.8); LYMPH % 29 % (24-48); MEAN CORPUSCULAR HEMOGLOBIN 30 pg (25-35); MEAN CORPUSCULAR HGB CONC 34 g/dL (31-37); MEAN CORPUSCULAR VOLUME 91 fL (79-100); MONO # 0.8 x10^3/uL (0.0-1.1); MONO % 10 % (0-9); NEUT # 4.8 x10^3/uL (1.8-7.7); NEUT % 59 % (31-73); PLATELET COUNT 233 x10^3/uL (140-400); RED BLOOD COUNT 5.31 x10^6/uL (4.30-5.70); RED CELL DISTRIBUTION WIDTH 13.4 % (11.5-14.5); WHITE BLOOD COUNT 8.3 x10^3/uL (4.0-11.0)
[2020-08-24 22:04] LABS: CALCIUM 9.2 mg/dL (8.5-10.1); CREATININE 0.7 mg/dL (0.7-1.3); GFR 130.7; POTASSIUM 4.2 mmol/L (3.5-5.1)
[2020-08-24 22:10] LABS: ALBUMIN/GLOBULIN RATIO 1.3 (1.0-1.7); MAGNESIUM 1.9 mg/dL (1.8-2.4); TOTAL BILIRUBIN 0.9 mg/dL (0.2-1.0); TOTAL PROTEIN 7.1 g/dL (6.4-8.2)
--- NOTE | 2020-08-24 22:24 | PHYS DOC ---
Past Medical History Past Medical History: No Pertinent History Past Surgical History: Other Additional Past Surgical Histo: tubes in ears Smoking Status: Current Every Day Smoker Alcohol Use: Occasionally Drug Use: None General Adult EDM: Chief Complaint: DIZZY/LIGHT HEADED HPI: HPI: Patient is a 34 year old male current smoker who presents to the ED today with multiple complaints. Patient states he was working at [employer] today, he states he developed 6 out of 10 left-sided chest pain that radiated to the left arm, patient states both his hands became numb and tingling. He states he became dizzy. He states the chest pain has been going on and off since then. He states he took an aspirin with no relief. Describes the chest pain as tightness. Denies anything specifically relieving the pain right now. Denies anything exacerbating the pain. Review of Systems: Review of Systems: Constitutional: Denies fever or chills. [] Eyes: Denies change in visual acuity. [] HENT: Denies nasal congestion or sore throat. [] Respiratory: Denies cough or shortness of breath. [] Cardiovascular: Reports left-sided chest pain GI: Denies abdominal pain, nausea, vomiting, bloody stools or diarrhea. [] : Denies dysuria. [] Musculoskeletal: Denies back pain or joint pain. [] Integument: Denies rash. [] Neurologic: Reports dizziness. Denies headache, focal weakness or sensory changes. [] Psychiatric: Denies depression or anxiety. [] Heart Score: Risk Factors: Risk Factors: DM, Current or recent (<one month) smoker, HTN, HLP, family history of CAD, obesity. Risk Scores: Score 0 - 3: 2.5% MACE over next 6 weeks - Discharge Home Score 4 - 6: 20.3% MACE over next 6 weeks - Admit for Clinical Observation Score 7 - 10: 72.7% MACE over next 6 weeks - Early Invasive Strategies Current Medications: Current Medications Medications (Trade) Dose Ordered Sig/Joaquim Start Time Stop Time Status Last Admin Dose Admin Aspirin (Dominique Aspirin) 325 mg 1X ONCE 08/24/20 21:45 08/24/20 21:50 DC 08/24/20 22:07 325 MG Meclizine HCl (Antivert) 12.5 mg 1X ONCE 08/24/20 21:45 12/13/20 21:50 DC 08/24/20 22:07 12.5 MG Morphine Sulfate (Morphine Sulfate) 4 mg PRN Q15MIN PRN 08/24/20 21:45 08/25/20 21:44 08/24/20 22:08 4 MG Nitroglycerin (Nitrostat) 0.4 mg PRN Q5MIN PRN 08/24/20 21:45 08/25/20 21:44 08/24/20 22:07 0.4 MG Sodium Chloride 1,000 ml @ 1,000 mls/hr 1X ONCE 08/24/20 21:45 08/24/20 22:44 08/24/20 22:07 1,000 MLS/HR Allergies: Allergies: Allergies Coded Allergies Type Severity Reaction Last Updated Verified No Known Drug Allergies 07/06/18 No Physical Exam: PE: Constitutional: Well developed, well nourished, no acute distress, non-toxic appearance. [] HENT: Normocephalic, atraumatic, bilateral external ears normal, oropharynx moist, no oral exudates, nose normal. [] Eyes: PERRLA, EOMI, conjunctiva normal, no discharge. [] Neck: Normal range of motion, no tenderness, supple, no stridor. [] Cardiovascular:Heart rate regular rhythm, no murmur [] Lungs & Thorax: Bilateral breath sounds clear to auscultation [] Abdomen: Bowel sounds normal, soft, no tenderness, no masses, no pulsatile masses. [] Skin: Warm, dry, no erythema, no rash. [] Back: No tenderness, no CVA tenderness. [] Extremities: No tenderness, no cyanosis, no clubbing, ROM intact, no edema. [] Neurologic: Alert and oriented X 3, normal motor function, normal sensory function, no focal deficits noted. [] Psychologic: Affect normal, judgement normal, mood normal. [] Current Patient Data: Labs: Laboratory Tests Test 08/24/20 21:22 White Blood Count 8.3 x10^3/uL (4.0-11.0) Red Blood Count 5.31 x10^6/uL (4.30-5.70) Hemoglobin 16.1 g/dL (13.0-17.5) Hematocrit 48.1 % (39.0-53.0) Mean Corpuscular Volume 91 fL (79-100) Mean Corpuscular Hemoglobin 30 pg (25-35) Mean Corpuscular Hemoglobin Concent 34 g/dL (31-37) Red Cell Distribution Width 13.4 % (11.5-14.5) Platelet Count 233 x10^3/uL (140-400) Neutrophils (%) (Auto) 59 % (31-73) Lymphocytes (%) (Auto) 29 % (24-48) Monocytes (%) (Auto) 10 % (0-9) H Eosinophils (%) (Auto) 2 % (0-3) Basophils (%) (Auto) 1 % (0-3) Neutrophils # (Auto) 4.8 x10^3/uL (1.8-7.7) Lymphocytes # (Auto) 2.4 x10^3/uL (1.0-4.8) Monocytes # (Auto) 0.8 x10^3/uL (0.0-1.1) Eosinophils # (Auto) 0.2 x10^3/uL (0.0-0.7) Basophils # (Auto) 0.0 x10^3/uL (0.0-0.2) Sodium Level 139 mmol/L (136-145) Potassium Level 4.2 mmol/L (3.5-5.1) Chloride Level 104 mmol/L (98-107) Carbon Dioxide Level 28 mmol/L (21-32) Anion Gap 7 (6-14) Blood Urea Nitrogen 11 mg/dL (8-26) Creatinine 0.7 mg/dL (0.7-1.3) Estimated GFR (Cockcroft-Gault) 130.7 BUN/Creatinine Ratio 16 (6-20) Glucose Level 86 mg/dL (70-99) Calcium Level 9.2 mg/dL (8.5-10.1) Magnesium Level 1.9 mg/dL (1.8-2.4) Total Bilirubin 0.9 mg/dL (0.2-1.0) Aspartate Amino Transferase (AST) 227 U/L (15-37) H Alanine Aminotransferase (ALT) 425 U/L (16-63) H Alkaline Phosphatase 79 U/L (46-116) Troponin I Quantitative < 0.017 ng/mL (0.000-0.055) PK-Szi-G-Type Natriuretic Peptide < 5 pg/mL (0-124) Total Protein 7.1 g/dL (6.4-8.2) Albumin 4.0 g/dL (3.4-5.0) Albumin/Globulin Ratio 1.3 (1.0-1.7) Thyroid Stimulating Hormone (TSH) 2.344 uIU/mL (0.358-3.74) Ethyl Alcohol Level < 10 mg/dL (0-10) Laboratory Tests 08/24/20 21:22 Laboratory Tests 08/24/20 21:22 Vital Signs: Vital Signs Date Time Temp Pulse Resp B/P (MAP) Pulse Ox O2 Delivery O2 Flow Rate FiO2 08/24/20 22:08 Room Air 08/24/20 22:07 90 122/74 08/24/20 21:15 98.9 13 97 98.9 EKG: EKG: [] Radiology/Procedures: Radiology/Procedures: []PROCEDURE: PORTABLE CHEST 1V Exam: Chest one view INDICATION: Dizziness TECHNIQUE: Frontal view of the chest Comparisons: 08/27/2019 FINDINGS: The cardiomediastinal silhouette and pulmonary vessels are within normal limits. Hazy opacity lung bases bilaterally. No pleural effusion. IMPRESSION: Findings likely related to pulmonary edema. Atypical infectious process is also possible. Electronically signed by: Braulio Luo MD (08/24/2020 10:30 PM) [facility] DICTATED and SIGNED BY: BRAULIO LUO MD DATE: 08/24/20 [id number] 0 Course & Med Decision Making: Course & Med Decision Making Pertinent Labs and Imaging studies reviewed. (See chart for details) This is a 34-year-old male patient presented to the ED today with multiple complaints. Patient is complaining of chest pain, dizziness, bilateral arms numbness, tingling, symptoms began a couple minutes prior to coming to the ED while walking at [facility]. EKG is negative, labs are negative for any acute findings. Troponin is normal. D-dimer is normal. Patient was apparently given morphine and decided he needs to leave. I did not have a chance to talk to him but he was alert and oriented the last time I saw him and able to make his own decisions. Dragon Disclaimer: Dragon Disclaimer: This electronic medical record was generated, in whole or in part, using a voice recognition dictation system. Departure Departure Impression: Primary Impression: Smoking addiction Additional Impression: Chest pain Qualified Codes: R07.9 - Chest pain, unspecified Disposition: 07 AMA/ELOPED/LWBS Condition: STABLE Referrals: NO PCP (PCP) ROYAL ALVAREZ APRN Aug 24, 2020 22:24
[2020-08-24 22:25] VITALS: BP 119/64
--- NOTE | 2020-08-24 22:32 | RAD ---
Exam: Chest one view INDICATION: Dizziness TECHNIQUE: Frontal view of the chest Comparisons: 08/27/2019 FINDINGS: The cardiomediastinal silhouette and pulmonary vessels are within normal limits. Hazy opacity lung bases bilaterally. No pleural effusion. IMPRESSION: Findings likely related to pulmonary edema. Atypical infectious process is also possible. Electronically signed by: Braulio Bahena MD (08/24/2020 10:30 PM) [facility]
--- NOTE | 2020-08-25 14:56 | EKG ---
[facility] [address] [place] [address] Test Date: 2020-08-24 Test Time: 21:22:05 Pat Name: DOROTHY AMAYA Department: Room: Gender: M Hob Grinder: : 1985 Requested By: ROYAL ALVAREZ Order Number: [id number] Reading MD: Measurements Intervals [place] Rate: 87 P: 57 MO: 152 QRS: 63 QRSD: 80 T: 43 QT: 338 QTc: 407 Interpretive Statements SINUS RHYTHM NORMAL ECG RI6.02 No previous ECG available for comparison
--- NOTE | 2020-08-27 12:41 | NUR ---
IP: Informed pt of negative COVID test. Pt verbalized understanding.
== END 2020-08-24 22:34 | disposition left against medical advice (07) ==
LOC: ER 21:10
DX: R07.89 Other chest pain (principal); Z20.828 Contact with and (suspected) exposure to other viral communicable diseases; R42 Dizziness and giddiness; F17.200 Nicotine dependence, unspecified, uncomplicated; Z98.890 Other specified postprocedural states
CPT/HCPCS: 36415; 71045; 80053; 83735; 83880; 84443; 84484; 85025; 85379; 93005; 96374; 99285; C9803; G0480; J2270; J7030; J8597; U0003

== ENCOUNTER 2021-12-19 22:00 | Emergency (ER) | payer SELFPAY ==
[~2021-12-19] VITALS: Ht 167.6 cm; Wt 75.0 kg
[~2021-12-19 22:00] MED LIST changes: +CLIN-94 PO; -CLIN300C9 PO
--- NOTE | 2021-12-19 23:40 | RAD ---
Exam: Right foot 3 views. Right ankle 3 views INDICATION: Fall, pain, foot swelling TECHNIQUE: Frontal, lateral oblique views of the right foot and right ankle Comparisons: None FINDINGS: Foot: Mildly displaced fractures involving the base of the third and fourth metatarsal. There is mild offse t of the second TMT joint. Bone mineralization is normal. Mild soft tissue swelling. Ankle: Soft tissue swelling surrounding the ankle. No acute or healed fractures. Joint spaces are well-maint ained. Bone mineralization is normal. IMPRESSION: 1. Mildly displaced fractures involving the base of the third and fourth metatarsal and mild offset at the TMT joint. Findings could relate to injury at the Lisfranc joint. 2. Soft tissue stranding surrounding the ankle. Electronically signed by: Braulio Bahena MD (12/19/2021 11:37 PM) [facility]
--- NOTE | 2021-12-20 01:52 | RAD ---
EXAM: CT right foot without contrast DATE: 12/20/2021 1:23 AM COMPARISON: No prior INDICATION: Reason: focus on right foot, trauma, Possible Lisfranc frx / Spl. Instructions: / Histo ry: TECHNIQUE: CT of the right foot was performed without IV contrast.Axial, sagittal and coronal images were created at the CT console workstation. PQRS compliance statement - One or more of the following individualized dose reduction techniques wer e utilized for this study: 1. Automated exposure control 2. Adjustment of the mA and/or kV according to patient size 3. Use of iterative reconstruction technique FINDINGS: There is offset at the second tarsometatarsal joint. Acute fractures of the medial cuneiform, base of the first metatarsal and base of the second metatarsal with small osseous fragments within the first and second metatarsal base. Acute injury and Lisfranc injury is suspected. Third metatarsal is intac t. Comminuted fracture of the base of the fourth metatarsal with mild offset. Calcaneal enthesophytes are seen. Mild forefoot and midfoot soft tissue swelling. IMPRESSION: 1. Second tarsometatarsal offset consistent with Lisfranc injury. Small avulsion fractures at the ba se of the first and second metatarsal and medial cuneiform. Comminuted fractures at the base of the f ourth metatarsal. Electronically signed by: Andrew Farrell MD (12/20/2021 1:50 AM) [facility]
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
[2021-12-20 02:50] VITALS: BP 114/62
[2021-12-20] MEDS ORDERED: KETOROLAC 15 MG/ML VIAL. IM ONE (03:30)
== END 2021-12-20 04:10 | disposition home or self-care (01) ==
LOC: ER 22:00
DX: S93.324A Dislocation of tarsometatarsal joint of right foot, initial encounter (principal); F17.200 Nicotine dependence, unspecified, uncomplicated; V29.9XXA Motorcycle rider (driver) (passenger) injured in unspecified traffic accident, initial encounter; Y93.89 Activity, other specified; Y92.488 Other paved roadways as the place of occurrence of the external cause; Y99.8 Other external cause status
CPT/HCPCS: 73610; 73630; 73700; 96372; 99284; J1885